=== PATIENT | female | born 1945 | race Caucasian/White ===

== ENCOUNTER 2019-03-02 19:08 | Emergency (ER) | payer MEDICARE, BC ==
[~2019-03-02] VITALS: Ht 157.5 cm; Wt 72.6 kg
[~2019-03-02 19:08] MED LIST: PRILOSEC; VICODIN; ZOCOR; ZOLP5TAB2 PO
--- NOTE | 2019-03-02 19:36 | NUR ---
Dr. Sanchez at bedside for MSE.
--- NOTE | 2019-03-02 20:47 | NUR ---
Patient discharged to home in stable conditon. Written and verbal after care instructions given. Patient verbalizes understanding of instructions. Pt ambulated out of ER with steady gait, no acute signs of distress, VSS, all belongings taken.
[2019-03-02 20:48] VITALS: BP 124/103
== END 2019-03-02 20:49 | disposition home or self-care (01) ==
LOC: ER 19:11
DX: R00.2 Palpitations (principal); E78.00 Pure hypercholesterolemia, unspecified; K21.9 Gastro-esophageal reflux disease without esophagitis; Z79.899 Other long term (current) drug therapy
CPT/HCPCS: 36415; 70030-TC; 93005; A4663

== ENCOUNTER 2019-03-31 15:37 | Emergency (ER) | payer MEDICARE, BC ==
[~2019-03-31] VITALS: Ht 157.5 cm; Wt 68.0 kg
[2019-03-31 16:17] LABS: BASOPHILS % (AUTO) 0.3 % (0.0-2.0); EOSINOPHILS % (AUTO) 0.1 % (0.0-7.0); HEMATOCRIT 39.9 % (31.2-41.9); HEMOGLOBIN 13.5 g/dL (10.9-14.3); LYMPHOCYTES % (AUTO) 9.8 % (20.5-51.5); MEAN CORPUSCULAR HEMOGLOBIN 30.3 uug (24.7-32.8); MEAN CORPUSCULAR HGB CONC 34 g/dL (32.3-35.6); MEAN CORPUSCULAR VOLUME 89.4 fL (75.5-95.3); MONOCYTES % (AUTO) 10.5 % (0.0-11.0); NEUTROPHILS # (AUTO) 7.7 K/uL (1.8-8.9); NEUTROPHILS % (AUTO) 79.3 % (38.5-71.5); PLATELET COUNT (AUTO) 224 K/uL (179-408); RED BLOOD CELL COUNT(AUTO) 4.47 MIL/uL (3.63-4.92); WHITE BLOOD COUNT (AUTO) 9.7 K/uL (3.8-11.8)
[2019-03-31 16:22] LABS: CREATININE 0.7 mg/dL (0.6-1.3)
[2019-03-31 16:35] LABS: BILIRUBIN,DIRECT 0.2 mg/dL (0.0-0.2); TOTAL PROTEIN, SERUM 7.1 g/dL (6.4-8.2)
[2019-03-31] MEDS ORDERED: KETOROLAC TROMETHAMINE 30 MG INJ ONE (17:11)
[2019-03-31] MEDS ORDERED: KETOROLAC TROMETHAMINE 30 MG INJ IVP ONE (17:15)
[2019-03-31] MEDS ORDERED: KETOROLAC TROMETHAMINE 30 MG INJ IM ONE (17:15)
[2019-03-31 17:27] VITALS: BP 133/70
--- NOTE | 2019-03-31 17:29 | NUR ---
Patient discharged to home in stable conditon. Written and verbal after care instructions given. Patient verbalizes understanding of instructions.
--- NOTE | 2019-03-31 17:29 | NUR ---
IV removed. Catheter intact and site benign. Pressure and 4x4 gauze applied to site. No bleeding noted.
== END 2019-03-31 17:29 | disposition home or self-care (01) ==
LOC: ER 15:37
DX: R10.9 Unspecified abdominal pain (principal); E78.00 Pure hypercholesterolemia, unspecified; K21.9 Gastro-esophageal reflux disease without esophagitis; Z79.899 Other long term (current) drug therapy
CPT/HCPCS: 36415; 71045; 80048; 80076; 83880; 84484; 85025; 85379; 85730; 93005; 96374; 99284; J1885; 70030-TC; A4663

== ENCOUNTER 2020-04-04 20:13 | Emergency (ER) | payer MEDICARE, BC ==
[~2020-04-04] VITALS: Ht 157.5 cm; Wt 77.1 kg
--- NOTE | 2020-04-04 20:28 | NUR ---
Dr. Sanchez at bedside for MSE.
--- NOTE | 2020-04-04 20:35 | NUR ---
Pt down for Xray.
--- NOTE | 2020-04-04 20:44 | NUR ---
Pt back from Xray.
--- NOTE | 2020-04-04 20:45 | NUR ---
MD explained Xray results to patient. Patient is cleared for discharge to home. Written and verbal after care instructions given. Patient verbalizes understanding of instructions. Stressed follow up or return to ER for worsening s/s. DC'ed to home in stable condition.
[2020-04-04 20:46] VITALS: BP 150/89
== END 2020-04-04 20:48 | disposition home or self-care (01) ==
LOC: ER 20:15
DX: R09.89 Other specified symptoms and signs involving the circulatory and respiratory systems (principal); K21.9 Gastro-esophageal reflux disease without esophagitis; Z79.899 Other long term (current) drug therapy; E78.00 Pure hypercholesterolemia, unspecified
CPT/HCPCS: 71046; A4663